=== PATIENT | female | born 1930 | race Caucasian/White ===

== ENCOUNTER 2017-03-06 10:37 | Observation (INO) | payer OTHER ==
[~2017-03-06] VITALS: Ht 152.4 cm; Wt 72.3 kg
[~2017-03-06 10:37] MED LIST: ACTOPLUS MET1 TABLE1 PO; ACTOPLUS MET1 TABLET PO; ACULAR 0.5100 DROP/5; ASPIR 8181 M1 PO; BESIVANCE5 ML RIGHT EYE; CYANOCOBALAM1000 MCG PO; GABAPENTIN100 MG PO; HYZAAR 50-121 TABLET PO; JANUVIA100 MG PO; LEVOTHROID,S0.075 MG PO; LEVOTHROID88 MCG PO; LEVOTHYROXINE88 MCG PO; LIPITOR10 MG PO; LIPITOR20 MG PO; LO-DOSE ASPIRIN81 M1 PO; LOSARTAN-HCTZ1 EACH PO; LUMIGAN 0.50 DROP/2. BOTH EYES; MOTRIN IB200 MG PO; NEXIUM40 MG PO; PEPTO BISMOL240 ML PO; PREDNISOLONE AC15 ML LEFT EYE; PREVACID15 MG PO; ZESTORETIC,P1 TABLE2 PO
[2017-03-06 11:37] LABS: HEMATOCRIT 35.2 % (36.0-46.0); MCH 29.5 PG (29.0-34.0); MCV 89.6 FL (83-99); MEAN PLAT.VOLUME 10.5 uM^3 (9.5-12.4); PLATELET COUNT 375 K/uL (156-360); RBC DIS.WIDTH-CV 13.6 % (11.8-14.6); RBC DIS.WIDTH-SD 44.7 % (39-53); RED BLOOD COUNT 3.93 M/uL (3.80-5.20); WHITE BLOOD COUNT 6.8 K/uL (4.1-10.2)
[2017-03-06 11:47] LABS: POINT-OF-CARE METER ID UU13113778
[2017-03-06 11:49] LABS: CHLORIDE 105 mEq/L (99-109); POTASSIUM 4.3 mEq/L (3.7-5.4); SODIUM 140 mEq/L (136-147)
[2017-03-06 11:51] LABS: GLUCOSE 121 mg/dL (70-99)
[2017-03-06 11:53] LABS: ANION GAP 10 MEQ/L (2-14); TOTAL BILIRUBIN 0.4 mg/dL (0.0-1.0)
[2017-03-06 11:55] LABS: ALKALINE PHOSPHATASE 58 IU/L (3-129); GFR ESTIMATE (CALCULATED) 35 mL/min/
[2017-03-06 11:56] LABS: UREA NITROGEN (BUN) 16 mg/dL (9-23)
[2017-03-06 13:39] LABS: LIPASE 33 U/L (1.0-51.0)
[2017-03-06 15:07] LABS: TROP-I INTERPRETATION NEGATIVE; TROPONIN-I < 0.01 ng/mL (0.0-0.30)
[2017-03-06 15:26] LABS: ADD MIUA? NO; BILIRUBIN NEGATIVE; BLOOD NEGATIVE; COLOR YELLOW ((YELLOW)); GLUCOSE (STRIP) NEGATIVE; KETONES NEGATIVE; LEUKOCYTES NEGATIVE; NITRITE NEGATIVE; PROTEIN (STRIP) 30; SPECIFIC GRAVITY 1.008 (1.000-1.030); UCUL ADDED? NO; UROBILINOGEN 0.2 MG/DL (0.2-1.0)
[2017-03-06 16:17] LABS: TROP-I INTERPRETATION NEGATIVE; TROPONIN-I < 0.01 ng/mL (0.0-0.30)
[2017-03-06 19:07] VITALS: BP 212/84
[2017-03-06 19:10] VITALS: BP 180/68
[2017-03-06 20:37] LABS: POINT-OF-CARE METER ID UU14162513
[2017-03-07 00:50] VITALS: BP 137/63
[2017-03-07 03:24] VITALS: BP 159/71
[2017-03-07 05:47] LABS: HEMATOCRIT 31.8 % (36.0-46.0); MCH 30.3 PG (29.0-34.0); MCV 91.9 FL (83-99); MEAN PLAT.VOLUME 10.5 uM^3 (9.5-12.4); PLATELET COUNT 349 K/uL (156-360); RBC DIS.WIDTH-CV 14.1 % (11.8-14.6); RBC DIS.WIDTH-SD 47.8 % (39-53); RED BLOOD COUNT 3.46 M/uL (3.80-5.20); WHITE BLOOD COUNT 8.4 K/uL (4.1-10.2)
[2017-03-07 06:27] LABS: ANION GAP 8 MEQ/L (2-14); CHLORIDE 108 MEQ/L (99-109); GFR ESTIMATE (CALCULATED) 45 mL/min/; POTASSIUM 4.5 MEQ/L (3.7-5.4); SAMPLE HEMOLYSIS CHECK 0; SAMPLE ICTERIC CHECK 0; SAMPLE LIPEMIA CHECK 0; SODIUM 140 MEQ/L (136-147); UREA NITROGEN (BUN) 16 mg/dL (9-23)
[2017-03-07 06:33] LABS: GLUCOSE 88 mg/dL (70-99)
[2017-03-07 07:10] VITALS: BP 195/83
[2017-03-07 07:59] LABS: POINT-OF-CARE METER ID UU13113831
[2017-03-07] MEDS ORDERED: AMLODIPINE BESY10 MG PO (10:00)
== END 2017-03-07 11:55 | disposition home or self-care (01) ==
LOC: EME 10:37 → EDOF 17:14 → 5WEST 17:14
PROVIDERS: Hospitalist; Internal Medicine; Physician Assistant Medical
DX: R19.7 Diarrhea, unspecified (principal); R55 Syncope and collapse; R11.0 Nausea; R10.9 Unspecified abdominal pain; E11.9 Type 2 diabetes mellitus without complications; E78.5 Hyperlipidemia, unspecified; I10 Essential (primary) hypertension; K21.9 Gastro-esophageal reflux disease without esophagitis; E03.9 Hypothyroidism, unspecified; N28.9 Disorder of kidney and ureter, unspecified; N28.1 Cyst of kidney, acquired; D17.1 Benign lipomatous neoplasm of skin and subcutaneous tissue of trunk
CPT/HCPCS: 74176; 80048; 80053; 81003; 82948; 83630; 83690; 84484; 85027; 87177; 87493; 87506; 93005; 99281; 99285; G0378; J0360; J1815; J1885; J2405; J7030

== ENCOUNTER 2017-10-23 04:36 | Inpatient (IN) | payer OTHER ==
[~2017-10-23] VITALS: Ht 152.4 cm; Wt 75.4 kg
[~2017-10-23 04:36] MED LIST changes: +AMLODIPINE BESY10 MG PO; +LEVOTHYROXINE100 MCG PO; -LEVOTHYROXINE88 MCG PO; -LUMIGAN 0.50 DROP/2. BOTH EYES; +LUMIGAN 0.50 DROP/22 BOTH EYES
[2017-10-23 05:32] LABS: BASOPHIL (%) 0.3 % (0-1); BASOPHIL COUNT 0.1 K/uL (0-0.1); EOSINOPHIL (%) 3.1 % (0-5); EOSINOPHIL COUNT 0.5 K/uL (0-0.3); HEMATOCRIT 39.9 % (36.0-46.0); HEMOGLOBIN 13.1 G/DL (11.9-15.5); IMMATURE GRANULOCYTE (%) 0.6 % (0.0-0.7); LYMPHOCYTE (%) 5.9 % (15-42); MCH 29.9 PG (29.0-34.0); MCHC 32.8 G/DL (30.0-36.0); MCV 91.1 FL (83-99); MONOCYTE (%) 6.5 % (3-12); MONOCYTE COUNT 1.1 K/uL (0-0.8); NEUTROPHIL (%) 83.6 % (45-76); NEUTROPHIL COUNT 13.6 K/uL (1.8-6.4); RBC DIS.WIDTH-SD 46.2 % (39-53); RED BLOOD COUNT 4.38 M/uL (3.80-5.20); WHITE BLOOD COUNT 16.2 K/uL (4.1-10.2)
[2017-10-23 05:42] LABS: ALBUMIN 4.2 g/dL (3.2-4.8); CHLORIDE 106 mEq/L (99-109); POTASSIUM 5.5 mEq/L (3.7-5.4)
[2017-10-23 05:43] LABS: SODIUM 138 mEq/L (136-147)
[2017-10-23 05:45] LABS: GLUCOSE 174 mg/dL (70-99); TOTAL PROTEIN 7.2 g/dL (6.4-8.3)
[2017-10-23 05:47] LABS: TOTAL BILIRUBIN 0.3 mg/dL (0.0-1.0)
[2017-10-23 05:48] LABS: ALKALINE PHOSPHATASE 64 IU/L (3-129)
[2017-10-23 05:49] LABS: CREATININE 1.5 mg/dL (0.6-1.3); GFR ESTIMATE (CALCULATED) 35 mL/min/
[2017-10-23 05:50] LABS: AST (GOT) 33 IU/L (2-34); DIRECT BILIRUBIN 0.1 mg/dL (0.0-0.3); UREA NITROGEN (BUN) 19 mg/dL (9-23)
[2017-10-23 05:51] LABS: ALT (GPT) 19 IU/L (3-49)
[2017-10-23 05:52] LABS: LIPASE 80 U/L (1.0-51.0)
[2017-10-23 06:08] LABS: PLAT.SUFFICIENCY ADEQUATE; PLATELET CLUMPS PRESENT - PLATELET COUNT APPEARS ADQ.; PLATELET COUNT UNABLE TO REPORT K/uL (156-360)
[2017-10-23 06:15] LABS: APPEARANCE SL.HAZY ((CLEAR)); BILIRUBIN NEGATIVE; BLOOD SMALL; COLOR YELLOW ((YELLOW)); GLUCOSE (STRIP) 50; KETONES NEGATIVE; LEUKOCYTES NEGATIVE; NITRITE NEGATIVE; PROTEIN (STRIP) 100; UROBILINOGEN 0.2 MG/DL (0.2-1.0)
[2017-10-23 06:19] LABS: BACTERIA RARE /HPF; EPITHELIAL CELLS RARE /HPF; HYALINE CASTS 40-50 /LPF; MUCUS TRACE /LPF; WHITE BLOOD CELLS 0-5 /HPF (0-5)
[2017-10-23] MEDS ORDERED: LOSARTAN POTASS50 MG PO (09:31)
[2017-10-23] MEDS ORDERED: OMEPRAZOLE40 M1 PO (09:32)
[2017-10-23] MEDS ORDERED: RANITIDINE HCL150 MG PO (09:32)
[2017-10-23 10:45] VITALS: BP 124/62
[2017-10-23 13:26] LABS: CHLORIDE 111 MEQ/L (99-109); CREATININE 1.3 MG/DL (0.6-1.3); GFR ESTIMATE (CALCULATED) 41 mL/min/; POTASSIUM 4.7 MEQ/L (3.7-5.4); SODIUM 141 MEQ/L (136-147); UREA NITROGEN (BUN) 21 mg/dL (9-23)
[2017-10-23 13:27] LABS: GLUCOSE 65 mg/dL (70-99)
[2017-10-23 15:46] VITALS: BP 149/65
[2017-10-23 20:57] VITALS: BP 159/52
[2017-10-23 23:25] VITALS: BP 158/79
[2017-10-24] VITALS (7 sets, daily range): BP systolic 150–198; BP diastolic 60–84
[2017-10-24 07:23] LABS: HEMATOCRIT 31.3 % (36.0-46.0); MCH 29.7 PG (29.0-34.0); MCHC 32.3 G/DL (30.0-36.0); MCV 92.1 FL (83-99); PLATELET COUNT 326 K/uL (156-360); RBC DIS.WIDTH-CV 14.3 % (11.8-14.6); RBC DIS.WIDTH-SD 48.3 % (39-53); WHITE BLOOD COUNT 7.2 K/uL (4.1-10.2)
[2017-10-24 07:24] LABS: ALBUMIN 3.1 G/DL (3.2-4.8); ALKALINE PHOSPHATASE 39 IU/L (3-129); ALT (GPT) 10 IU/L (3-49); AST (GOT) 15 IU/L (2-34); CHLORIDE 113 MEQ/L (99-109); CREATININE 1.2 MG/DL (0.6-1.3); GFR ESTIMATE (CALCULATED) 45 mL/min/; GLUCOSE 101 mg/dL (70-99); POTASSIUM 4.6 MEQ/L (3.7-5.4); SODIUM 142 MEQ/L (136-147); TOTAL BILIRUBIN 0.3 MG/DL (0.0-1.0); TOTAL PROTEIN 5.2 G/DL (6.4-8.3); UREA NITROGEN (BUN) 15 mg/dL (9-23)
[2017-10-24 07:35] LABS: HEMOGLOBIN 10.1 G/DL (11.9-15.5); RED BLOOD COUNT 3.4 M/uL (3.80-5.20)
[2017-10-24 09:24] LABS: HEMOGLOBIN A1c (GLYCOHEMOGLOB) 6.9 % (Below 5.7)
[2017-10-25 00:12] VITALS: BP 158/70
[2017-10-25 04:15] VITALS: BP 165/70
[2017-10-25 06:41] LABS: BASOPHIL (%) 0.5 % (0-1); EOSINOPHIL (%) 7.2 % (0-5); EOSINOPHIL COUNT 0.4 K/uL (0-0.3); HEMATOCRIT 29.9 % (36.0-46.0); HEMOGLOBIN 9.6 G/DL (11.9-15.5); IMMATURE GRANULOCYTE (%) 0.9 % (0.0-0.7); LYMPHOCYTE (%) 24.1 % (15-42); LYMPHOCYTE COUNT 1.4 K/uL (1.0-2.8); MCH 28.7 PG (29.0-34.0); MCHC 32.1 G/DL (30.0-36.0); MCV 89.5 FL (83-99); MONOCYTE (%) 8.5 % (3-12); MONOCYTE COUNT 0.5 K/uL (0-0.8); NEUTROPHIL (%) 58.8 % (45-76); NEUTROPHIL COUNT 3.5 K/uL (1.8-6.4); PLATELET COUNT 319 K/uL (156-360); RBC DIS.WIDTH-SD 45.4 % (39-53); RED BLOOD COUNT 3.34 M/uL (3.80-5.20); WHITE BLOOD COUNT 5.9 K/uL (4.1-10.2)
[2017-10-25 07:00] LABS: CHLORIDE 113 MEQ/L (99-109); CREATININE 1.1 MG/DL (0.6-1.3); GFR ESTIMATE (CALCULATED) 50 mL/min/; GLUCOSE 105 mg/dL (70-99); POTASSIUM 4.2 MEQ/L (3.7-5.4); SODIUM 143 MEQ/L (136-147); UREA NITROGEN (BUN) 10 mg/dL (9-23)
[2017-10-25 07:30] VITALS: BP 186/79
[2017-10-25 10:23] LABS: LACTATE DEHYDROGENASE 186 IU/L (20-246); LIPASE 51 U/L (1.0-51.0)
[2017-10-25 10:37] LABS: IRON 71 MCG/DL (35-150); TRANSFERRIN SATUR. 33 % (20-55)
[2017-10-25 11:51] VITALS: BP 174/75
[2017-10-25 16:18] VITALS: BP 166/74
[2017-10-25 20:32] VITALS: BP 172/68
[2017-10-26] VITALS (7 sets, daily range): BP systolic 146–186; BP diastolic 52–78
[2017-10-26 07:51] LABS: HEMATOCRIT 31.5 % (36.0-46.0); HEMOGLOBIN 10.4 G/DL (11.9-15.5); MCH 29.6 PG (29.0-34.0); MCV 89.7 FL (83-99); PLATELET COUNT 339 K/uL (156-360); RBC DIS.WIDTH-CV 14.4 % (11.8-14.6); RBC DIS.WIDTH-SD 47.2 % (39-53); RED BLOOD COUNT 3.51 M/uL (3.80-5.20); WHITE BLOOD COUNT 6.2 K/uL (4.1-10.2)
[2017-10-26 08:12] LABS: CHLORIDE 111 MEQ/L (99-109); SODIUM 141 MEQ/L (136-147)
[2017-10-26 08:18] LABS: CREATININE 1.1 MG/DL (0.6-1.3); GFR ESTIMATE (CALCULATED) 50 mL/min/; GLUCOSE 117 mg/dL (70-99); UREA NITROGEN (BUN) 10 mg/dL (9-23)
[2017-10-26] MEDS ORDERED: CIPRO500 MG PO (09:26)
[2017-10-26] MEDS ORDERED: FLAGYL500 MG PO (09:26)
[2017-10-26] MEDS ORDERED: NIFEDIPINE10 MG PO (10:44)
== END 2017-10-26 16:59 | disposition home or self-care (01) | DRG 684 ==
LOC: EME 04:36 → 5EAST 07:23 → EDOF 07:23 → ENRESERV 07:25 → 5EAST 10:20
PROVIDERS: Internal Medicine; Physician Assistant
DX: N17.9 Acute kidney failure, unspecified (principal); K52.9 Noninfective gastroenteritis and colitis, unspecified; E86.0 Dehydration; E03.9 Hypothyroidism, unspecified; E11.65 Type 2 diabetes mellitus with hyperglycemia; E78.5 Hyperlipidemia, unspecified; E87.5 Hyperkalemia; I10 Essential (primary) hypertension; K21.9 Gastro-esophageal reflux disease without esophagitis; I95.9 Hypotension, unspecified; D64.9 Anemia, unspecified
CPT/HCPCS: 74176; 80048; 80048 91; 80053; 80076; 81003; 82272; 82948; 83036; 83540; 83605; 83615; 83630; 83690; 84466; 85025; 85027; 87040; 87086; 87177; 87493; 87506; 93005; 99281; 99285; C9113; J0360; J0744; J1644; J1815; J2405; J7030; S0030

== ENCOUNTER 2017-11-05 14:07 | Emergency (ER) | payer OTHER ==
[~2017-11-05] VITALS: Ht 152.4 cm; Wt 98.2 kg
[~2017-11-05 14:07] MED LIST changes: +CIPRO500 MG PO; +FLAGYL500 MG PO; +LOSARTAN POTASS50 MG PO; +NIFEDIPINE10 MG PO; +OMEPRAZOLE40 M1 PO; +RANITIDINE HCL150 MG PO
[2017-11-05 15:41] LABS: CARBON DIOXIDE (BICARBONATE) 30.4 MEQ/L (20-31)
[2017-11-05 15:43] LABS: BASOPHIL (%) 0.5 % (0-1); EOSINOPHIL (%) 2.1 % (0-5); EOSINOPHIL COUNT 0.1 K/uL (0-0.3); HEMATOCRIT 36.2 % (36.0-46.0); HEMOGLOBIN 12.1 G/DL (11.9-15.5); IMMATURE GRANULOCYTE (%) 0.9 % (0.0-0.7); LYMPHOCYTE (%) 18.4 % (15-42); LYMPHOCYTE COUNT 1.2 K/uL (1.0-2.8); MCH 29.4 PG (29.0-34.0); MCHC 33.4 G/DL (30.0-36.0); MCV 87.9 FL (83-99); MONOCYTE (%) 7.2 % (3-12); MONOCYTE COUNT 0.5 K/uL (0-0.8); NEUTROPHIL (%) 70.9 % (45-76); NEUTROPHIL COUNT 4.7 K/uL (1.8-6.4); PLATELET COUNT 397 K/uL (156-360); RBC DIS.WIDTH-CV 13.9 % (11.8-14.6); RBC DIS.WIDTH-SD 44.8 % (39-53); RED BLOOD COUNT 4.12 M/uL (3.80-5.20); WHITE BLOOD COUNT 6.6 K/uL (4.1-10.2)
[2017-11-05 15:57] LABS: ALBUMIN 3.9 G/DL (3.2-4.8); CHLORIDE 99 MEQ/L (99-109); POTASSIUM 4.1 MEQ/L (3.7-5.4); SODIUM 132 MEQ/L (136-147); TOTAL BILIRUBIN 0.3 MG/DL (0.0-1.0)
[2017-11-05 16:03] LABS: ALKALINE PHOSPHATASE 51 IU/L (3-129); ALT (GPT) 22 IU/L (3-49); AST (GOT) 20 IU/L (2-34); GFR ESTIMATE (CALCULATED) 56 mL/min/; GLUCOSE 110 mg/dL (70-99); LIPASE 55 U/L (1.0-51.0); PHOSPHORUS 3.4 mg/dL (2.5-4.9); TOTAL PROTEIN 6.5 G/DL (6.4-8.3); UREA NITROGEN (BUN) 23 mg/dL (9-23)
[2017-11-05 16:05] LABS: TROP-I INTERPRETATION NEGATIVE; TROPONIN-I < 0.01 ng/mL (0.0-0.30)
[2017-11-05 19:37] LABS: APPEARANCE CLEAR ((CLEAR)); BILIRUBIN NEGATIVE; BLOOD NEGATIVE; COLOR COLORLESS ((YELLOW)); GLUCOSE (STRIP) NEGATIVE; KETONES NEGATIVE; LEUKOCYTES NEGATIVE; NITRITE NEGATIVE; PROTEIN (STRIP) NEGATIVE; SPECIFIC GRAVITY 1.013 (1.000-1.030); UROBILINOGEN 0.2 MG/DL (0.2-1.0)
[2017-11-05 21:30] VITALS: BP 175/75
== END 2017-11-05 22:02 | disposition home or self-care (01) ==
LOC: EME 14:07
PROVIDERS: Emergency Medicine
DX: K64.9 Unspecified hemorrhoids (principal); E87.1 Hypo-osmolality and hyponatremia; R53.83 Other fatigue; E11.9 Type 2 diabetes mellitus without complications; E78.5 Hyperlipidemia, unspecified; I10 Essential (primary) hypertension; K21.9 Gastro-esophageal reflux disease without esophagitis; E03.9 Hypothyroidism, unspecified; Z85.850 Personal history of malignant neoplasm of thyroid
CPT/HCPCS: 71045; 74177; 80053; 81003; 82803; 82948; 83605; 83690; 83735; 83930; 84100; 84484; 85025; 87040; 93005; 99281; 99285; J7030